=== PATIENT | female | born 1975 | race Caucasian/White ===

== ENCOUNTER 2018-12-09 15:17 | Inpatient (IN) | payer MEDICARE, MEDICAID ==
[~2018-12-09] VITALS: Ht 149.9 cm; Wt 103.1 kg
[2018-12-09 16:39] LABS: HEMATOCRIT 40.5 % (36.0-47.0); HEMOGLOBIN 14.2 g/dl (12.0-15.5); MEAN CORPUSCULAR HEMOGLOBIN 31.1 pg (27.0-33.0); MEAN CORPUSCULAR HGB CONC 35.1 g/dl (32.0-36.5); MEAN CORPUSCULAR VOLUME 88.6 fl (80.0-96.0); PLATELET COUNT, AUTOMATED 253 10^3/uL (150-450); RED BLOOD COUNT 4.57 10^6/uL (4.00-5.40); WHITE BLOOD COUNT 7.6 10^3/uL (4.0-10.0)
[2018-12-09] MEDS ORDERED: FERR325T18 PO (16:44)
[2018-12-09] MEDS ORDERED: BUPR300T34 PO (16:44)
[2018-12-09] MEDS ORDERED: TRAZ-163 PO (16:44)
[2018-12-09] MEDS ORDERED: PRAZ1CAP PO (16:44)
[2018-12-09] MEDS ORDERED: HYDR50TA70 PO (16:44)
[2018-12-09] MEDS ORDERED: DOK1CAP7 PO (16:45)
[2018-12-09] MEDS ORDERED: CARV12.5 PO (16:45)
[2018-12-09] MEDS ORDERED: TOPI100T9 PO (16:45)
[2018-12-09] MEDS ORDERED: OMEP-221 PO (16:45)
[2018-12-09] MEDS ORDERED: ESCI20TA PO (16:45)
[2018-12-09] MEDS ORDERED: LORA-674 PO (16:45)
[2018-12-09] MEDS ORDERED: BACL1TAB8 PO (16:45)
[2018-12-09] MEDS ORDERED: CARB1TAB20 PO (16:45)
[2018-12-09] MEDS ORDERED: OXYB5TAB2 PO (16:45)
[2018-12-09] MEDS ORDERED: LEVO100T5 PO (16:45)
[2018-12-09 17:04] LABS: AMPHETAMINES LEVEL URINE NEGATIVE (NEGATIVE); BARBITURATES URINE NEGATIVE (NEGATIVE); BENZODIAZEPINES URINE NEGATIVE (NEGATIVE); CANNABINOIDS URINE NEGATIVE (NEGATIVE); COCAINE METABOLITE URINE NEGATIVE (NEGATIVE); METHADONE URINE NEGATIVE (NEGATIVE); OPIATES URINE NEGATIVE (NEGATIVE); PHENCYCLIDINE URINE NEGATIVE (NEGATIVE)
[2018-12-09 17:07] LABS: HCG, SERUM QUALITATIVE NEGATIVE (NEGATIVE)
[2018-12-09 17:15] LABS: ACETAMINOPHEN LEVEL < 2.0 UG/ML (10.0-30.0); ALBUMIN 3.8 GM/DL (3.2-5.2); ALT/SGPT 18 U/L (12-78); BILIRUBIN,DIRECT 0.1 MG/DL (0.0-0.2); BILIRUBIN,TOTAL 0.4 MG/DL (0.2-1.0); BLOOD UREA NITROGEN 11 MG/DL (7-18); CALCIUM LEVEL 8.8 MG/DL (8.5-10.1); CARBON DIOXIDE LEVEL 23 MEQ/L (21-32); CHLORIDE LEVEL 106 MEQ/L (98-107); CREATININE FOR GFR 0.84 MG/DL (0.55-1.30); ETHYL ALCOHOL (ETHANOL) < 0.003 % (0.000-0.010); GLOMERULAR FILTRATION RATE > 60.0 (>58); GLUCOSE, FASTING 89 MG/DL (70-100); SALICYLATE LEVEL < 1.7 MG/DL (5.0-30.0); SODIUM LEVEL 136 MEQ/L (136-145); THYROID STIMULATING HORMONE 0.635 uIU/ML (0.358-3.740); TOTAL PROTEIN 7.2 GM/DL (6.4-8.2)
[2018-12-09] MEDS ORDERED: MAALOX 30 ML SUSP *UDC PO PRN (18:30)
[2018-12-09] MEDS ORDERED: MOM 30ML SUSPENSION UDC PO PRN (18:30)
[2018-12-09] MEDS ORDERED: PRAZ2CAP PO (18:51)
[2018-12-09] MEDS ORDERED: MOBI4TAB PO (18:51)
[2018-12-10 00:10] VITALS: BP 132/71
[2018-12-10 06:54] VITALS: BP 148/89
[2018-12-10] MEDS ORDERED: OMEPRAZOLE 20 MG CAP PO SCH (09:00)
--- NOTE | 2018-12-10 09:08 | HPEPDOC ---
General Date of Admission Dec 09, 2018 at 18:20 Date of Service: Dec 10, 2018 Attending Physician: NADEEM HOANG DO Chief Complaint The patient is a 43-year-old female admitted with a reason for visit of Unspecified Depression. Source: Patient, RN/MD Exam Limitations: No limitations Timing/Duration: Unsure Severity: Moderate Associated Symptoms: Malaise, Other (insomnia) History of Present Illness Consultation Medical as Patient referred by Inpatient Mental Health Unit: Physical Examination 43 year old female seen in examination room today on Inpatient Mental Health Unit for her physical examination by Medicine Hospitalist for medical clearance. Today she presents with complaints of her scalp itching, irritation,insomnia only getting approximately 2 2 1/2 hours of sleep each night, and constipation. She has significant medical history of polycystic ovary disease, GERD, Hypothyroidism, Seasonal Allergic Rhinitis, Iron deficiency Anemia,O Overactive bladder with Stress Incontinence and Hypothyroidism. She is admitted to Inpatient Mental Health Unit self referral for having Depression/Suicidal Ideations for several weeks. Home Medications Scheduled Baclofen (Baclofen) 10 Mg Tablet, 10 MG PO BID, (Reported) Bupropion HCl (Bupropion Xl) 300 Mg Tab.er.24h, 300 MG PO DAILY, (Reported) Carbamazepine (Carbamazepine) 200 Mg Tablet, 100 MG PO BID, (Reported) Carvedilol (Carvedilol) 12.5 Mg Tablet, 12.5 MG PO BID, (Reported) TAKES AT 0800 AND 1700 Docusate Sodium (Dok) 100 Mg Capsule, 100 MG PO BID, (Reported) Escitalopram Oxalate (Escitalopram Oxalate) 20 Mg Tablet, 20 MG PO DAILY, (Reported) Ferrous Sulfate (Ferrous Sulfate) 325 Mg Tablet, 325 MG PO BID, (Reported) TAKES AT 0800 & 1700 Levothyroxine Sodium (Levothyroxine Sodium) 100 Mcg Tablet, 100 MCG PO DAILY, (Reported) Loratadine (Loratadine) 10 Mg Tablet, 10 MG PO DAILY, (Reported) Meloxicam (Mobic) 7.5 Mg Tablet, 7.5 MG PO BID, (Reported) TAKES AT 0800 & 1700 - HAS NOT BEEN TAKING DUE TO NO REFILLS AND WAITING FOR APPOINTMENT IN DECEMBER Omeprazole (Omeprazole) 40 Mg Capsule.dr, 40 MG PO DAILY, (Reported) Oxybutynin Chloride (Oxybutynin Chloride ER) 5 Mg Tab.er.24, 5 MG PO DAILY, (Reported) Prazosin Hcl (Prazosin HCl) 1 Mg Capsule, 1 MG PO QHS, (Reported) 3MG TOTAL Prazosin Hcl (Prazosin HCl) 2 Mg Capsule, 2 MG PO QHS, (Reported) 3MG TOTAL Topiramate (Topiramate) 100 Mg Tablet, 100 MG PO BID, (Reported) Trazodone HCl (Trazodone HCl) 100 Mg Tablet, 200 MG PO QHS, (Reported) Scheduled PRN Hydroxyzine HCl (Hydroxyzine HCl) 50 Mg Tablet, 50 MG PO BID PRN for ANXIETY, (Reported) Allergies Coded Allergies: Penicillins (Verified Allergy, Intermediate, rash, 12/09/18) metformin (Verified Allergy, Intermediate, Diarrhea, 12/10/18) Diarrhea Past Medical History Medical History See HPI Surgical History Bilateral carpal tunnel surgery, bilateral knee surgery, cholecystectomy, ankle surgery, right 5th toe surgery Social History * Smoker: Denies Alcohol: Denies Drugs: prescription drugs Recent Travel/Sick Contacts: Denies: Recent travel, Recent sick contacts Psychosocial History: Anxiety, Con SI and HI, Depression, Emotional problems, Prior suicide attempt A-FIB/CHADSVASC A-FIB History Current/History of A-Fib/PAF?: No Review of Systems Constitutional: Reports: Fatigue Eyes: Denies: Pain, Vision change, Conjunctivae inflammation, Eyelid inflammation, Redness, Other ENT: Reports: Head Aches Skin: Denies: Rash, Lesions, Jaundice, Bruising, Itching, Dry, Breakdown, Nail Changes, Other Pulmonary: Denies: Dyspnea, Cough, Pleuritic Chest Pain, Other Symptoms Cardiovascular: Denies: Chest Pain, Palpitations, Orthopnea, Paroxysmal Noc. Dyspnea, Edema, Lt Headedness, Other Symptoms Gastrointestinal: Reports: Abdominal Pain, Constipation, Other Symptoms (indigestion); Denies: Nausea, Vomiting, Diarrhea, Melena, Hematochezia Genitourinary: Denies: Dysuria, Frequency, Incontinence, Hematuria, Retention, Other Symptoms Hematologic: Denies: Bruising, Bleeding Excessively, Petecchia, Purpura, Enlarged Lymph Nodes, Other Hematologic Endocrine: Denies: Polydipsia, Polyphagia, Polyuria, Heat Intolerance, Cold Intolerance, Other Endocrine Sx Musculoskeletal: Denies: Neck Pain, Back Pain, Shoulder Pain, Arm Pain, Hand Pain, Leg Pain, Foot Pain, Joint Pain, Muscle Pain, Spasms, Other Symptoms Neurological: Reports: Weakness; Denies: Numbness, Incoordination, Change in speech, Confusion, Seizures, Other Symptoms Psych: Reports: Other Psych (insomnia) Physical Examination General Exam: Positive: Alert, Cooperative, Mild Distress Eye Exam: Positive: PERRLA, Conjunctiva & lids normal, Sclera icteric ENT Exam: Positive: Atraumatic, Mucous membr. moist/pink, Pharynx Normal, Tongue Midline, Nares Patent Neck Exam: Positive: Supple, +2 carotid pulse wo bruit Chest Exam: Positive: Clear to auscultation, Normal air movement Heart Exam: Positive: Rate Normal, Regular Rhythm, Normal S1, Normal S2 Abdomen Exam: Positive: Normal bowel sounds, Soft, Tenderness (LLQ) Extremity Exam: Positive: Normal pulses Skin Exam: Positive: Nl turgor and temperature Neuro Exam: Positive: Normal Gait, Strength at 5/5 X4 ext, Cranial Nerves 3-12 NL Psych Exam: Positive: Anxiety, Oriented x 3, Other (flat affect, labile ) Vital Signs Vital Signs Date Time Temp Pulse Resp B/P (MAP) Pulse Ox O2 Delivery O2 Flow Rate FiO2 12/10/18 06:54 99.6 62 14 148/89 (108) 12/10/18 00:10 97 Room Air Laboratory Data Labs 24H Laboratory Tests 2 12/09/18 16:06: Nucleated Red Blood Cells % (auto) 0.0, Anion Gap 7L, Glomerular Filtration Rate > 60.0, Calcium Level 8.8, Total Bilirubin 0.4, Direct Bilirubin 0.1, Aspartate Amino Transf (AST/SGOT) 15, Alanine Aminotransferase (ALT/SGPT) 18, Alkaline Phosphatase 106, Total Protein 7.2, Albumin 3.8, Albumin/Globulin Ratio 1.12, Thyroid Stimulating Hormone (TSH) 0.635, Human Chorionic Gonadotropin, Qual NEGATIVE, Salicylates Level < 1.7L, Urine Opiates Screen NEGATIVE, Urine Methadone Screen NEGATIVE, Acetaminophen Level < 2.0L, Urine Barbiturates Screen NEGATIVE, Urine Phencyclidine Screen NEGATIVE, Urine Amphetamines Screen NEGATIVE, Urine Benzodiazepines Screen NEGATIVE, Urine Cocaine Metabolite Screen NEGATIVE, Urine Cannabinoids Screen NEGATIVE, Ethyl Alcohol Level < 0.003 CBC/BMP Laboratory Tests 12/09/18 16:06 Problems (1) Depression with suicidal ideation Status: Acute Response to Treatment: Progressing Discussed With: Patient Problem Specific Plan: Repeat Labs Problem Text: 43 year old female seen in examination room today on Inpatient Mental Health Unit for her physical examination by Medicine [facility] for medical clearance. Today she presents with complaints of her scalp itching, irritation,insomnia only getting approximately 2 2 1/2 hours of sleep each night, and constipation. Depression with Suicidal Ideation-acute continue following Inpatient Mental Health Unit program Pediculosis-acute Plan Permethrin 1% shampoo Hydroxyzine 25-50 mg po tid as needed for itching Essential Hypertension-Chronic Check CMP, CBC w differential, UA Continue taking Carvedilol 12.5 mg po bid Hypothyroidism-Chronic TSH- Continue levothyroxine 100mcg daily on empty stomach Constipation-Chronic Continue Docusate Sodium 100mg bid add Senokot-S 1 po bid, Bisacodyl 10 mg bid Overactive Bladder/Stress Incontinence Continue Prazosin 3 mg tab po QHS GERD-Chronic Continue taking Omeprazole DR 40 mg q daily Iron deficiency anemia-Chronic continue taking Ferrous Sulfate 325 mg Po bid with folic acid and orange juice to decrease GI upset and constipation but increase absorption Seasonal Allergies-Chronic Continue taking Loratadine 10 mg po daily Prognosis: Good DVT Prophylaxis: None, Low Risk patient is ambulatory Discharge: Pending-Mental Health Inpatient Plan / VTE VTE Prophylaxis Ordered?: No VTE Exclusion Mechanical Proph: Low Risk for VTE VTE Exclusion Pharmacological: At Low Risk for VTE Plan Diet: Continue Current Activity: Continue Current CLEO MURPHY Dec 10, 2018 09:08
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
[2018-12-10] MEDS ORDERED: OMEPRAZOLE 20 MG CAP PO ONE (09:45)
[2018-12-10] MEDS: LORATADINE 10 MG TAB PO SCH (09:56)
[2018-12-10] MEDS: MELOXICAM (MOBIC) 7.5 MG TAB PO SCH ×2 (09:56→22:33)
[2018-12-10] MEDS: DOCUSATE SODIUM 100 MG CAP PO SCH ×2 (09:56→22:33)
[2018-12-10] MEDS: FERROUS SULFATE 325MG TAB PO SCH ×2 (09:56→22:33)
[2018-12-10] MEDS: LEVOTHYROXINE 100MCG TABLET (0.1MG) PO SCH (09:58)
[2018-12-10] MEDS: TOPIRAMATE (TopAMAX) 100 MG TAB PO SCH ×2 (09:58→22:30)
[2018-12-10] MEDS: buPROPion **XL** TABLET 150MG (WELLBUTRIN XL) PO SCH (10:28)
[2018-12-10] MEDS: CARVedilol 12.5 MG TAB PO SCH ×2 (10:29→22:55)
[2018-12-10] MEDS: carBAMazepine 200 MG TAB PO SCH ×2 (10:30→22:32)
[2018-12-10] MEDS ORDERED: NIX CREME RINSE 1% 60 ML KIT TOP ONE (11:00)
[2018-12-10] MEDS: BACLOFEN 10 MG TAB PO SCH ×2 (11:27→22:33)
[2018-12-10] MEDS: oxyBUTYnin *DITROPAN XL* 5 MG TABCR PO SCH (11:28)
[2018-12-10] MEDS: hydrOXYzine 25 MG TAB PO PRN (19:01)
[2018-12-10 20:06] VITALS: BP 129/82
[2018-12-10] MEDS ORDERED: PRAZOSIN 1 MG CAP PO SCH (21:00)
[2018-12-10] MEDS: traZODone 50 MG TAB PO PRN (22:30)
[2018-12-10] MEDS: PRAZOSIN 1 MG CAP PO SCH (22:56)
[2018-12-11] MEDS: hydrOXYzine 25 MG TAB PO PRN ×3 (00:16→22:09)
[2018-12-11] MEDS: LEVOTHYROXINE 100MCG TABLET (0.1MG) PO SCH (05:59)
[2018-12-11 07:32] VITALS: BP 133/65
[2018-12-11] MEDS: BACLOFEN 10 MG TAB PO SCH ×2 (08:51→20:34)
[2018-12-11] MEDS: ARIPiprazole 2 MG TAB PO SCH (08:51)
[2018-12-11] MEDS: TOPIRAMATE (TopAMAX) 100 MG TAB PO SCH ×2 (08:51→20:34)
[2018-12-11] MEDS: MELOXICAM (MOBIC) 7.5 MG TAB PO SCH ×2 (08:51→17:53)
[2018-12-11] MEDS: carBAMazepine 200 MG TAB PO SCH ×2 (08:51→20:35)
[2018-12-11] MEDS: DOCUSATE SODIUM 100 MG CAP PO SCH ×2 (08:51→20:35)
[2018-12-11] MEDS: CARVedilol 12.5 MG TAB PO SCH ×2 (08:52→17:53)
[2018-12-11] MEDS: oxyBUTYnin *DITROPAN XL* 5 MG TABCR PO SCH (08:52)
[2018-12-11] MEDS: FERROUS SULFATE 325MG TAB PO SCH ×2 (08:52→17:51)
[2018-12-11] MEDS: buPROPion **XL** TABLET 150MG (WELLBUTRIN XL) PO SCH (08:52)
[2018-12-11] MEDS: OMEPRAZOLE 20 MG CAP PO SCH (08:52)
[2018-12-11] MEDS: LORATADINE 10 MG TAB PO SCH (08:52)
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
[2018-12-11 16:59] VITALS: BP 121/70
[2018-12-11] MEDS: PRAZOSIN 1 MG CAP PO SCH (20:35)
[2018-12-11] MEDS: traZODone 50 MG TAB PO PRN (21:06)
[2018-12-12] MEDS: LEVOTHYROXINE 100MCG TABLET (0.1MG) PO SCH (05:54)
[2018-12-12 06:36] VITALS: BP 134/70
[2018-12-12] MEDS: ARIPiprazole 2 MG TAB PO SCH (08:12)
[2018-12-12] MEDS: buPROPion **XL** TABLET 150MG (WELLBUTRIN XL) PO SCH (08:12)
[2018-12-12] MEDS: DOCUSATE SODIUM 100 MG CAP PO SCH ×2 (08:12→20:31)
[2018-12-12] MEDS: FERROUS SULFATE 325MG TAB PO SCH ×2 (08:12→16:59)
[2018-12-12] MEDS: TOPIRAMATE (TopAMAX) 100 MG TAB PO SCH ×2 (08:12→20:32)
[2018-12-12] MEDS: oxyBUTYnin *DITROPAN XL* 5 MG TABCR PO SCH (08:12)
[2018-12-12] MEDS: BACLOFEN 10 MG TAB PO SCH ×2 (08:13→20:30)
[2018-12-12] MEDS: LORATADINE 10 MG TAB PO SCH (08:13)
[2018-12-12] MEDS: MELOXICAM (MOBIC) 7.5 MG TAB PO SCH ×2 (08:14→16:59)
[2018-12-12] MEDS: OMEPRAZOLE 20 MG CAP PO SCH (08:14)
[2018-12-12] MEDS: CARVedilol 12.5 MG TAB PO SCH ×2 (08:14→16:59)
[2018-12-12] MEDS: carBAMazepine 200 MG TAB PO SCH ×2 (08:15→20:30)
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
[2018-12-12] MEDS: hydrOXYzine 25 MG TAB PO PRN (14:44)
[2018-12-12 18:00] VITALS: BP 125/72
[2018-12-12] MEDS: PRAZOSIN 1 MG CAP PO SCH (20:32)
[2018-12-12] MEDS: traZODone 50 MG TAB PO PRN (22:40)
[2018-12-13] MEDS: LEVOTHYROXINE 100MCG TABLET (0.1MG) PO SCH (06:06)
[2018-12-13 06:14] VITALS: BP 136/81
[2018-12-13] MEDS: carBAMazepine 200 MG TAB PO SCH ×2 (08:47→20:16)
[2018-12-13] MEDS: oxyBUTYnin *DITROPAN XL* 5 MG TABCR PO SCH (08:47)
[2018-12-13] MEDS: FERROUS SULFATE 325MG TAB PO SCH ×2 (08:47→16:21)
[2018-12-13] MEDS: ACETAMINOPHEN TAB 650MG DOSE (2X325MG) PO PRN (08:47)
[2018-12-13] MEDS: TOPIRAMATE (TopAMAX) 100 MG TAB PO SCH ×2 (08:47→20:16)
[2018-12-13] MEDS: DOCUSATE SODIUM 100 MG CAP PO SCH ×2 (08:47→20:15)
[2018-12-13] MEDS: MELOXICAM (MOBIC) 7.5 MG TAB PO SCH ×2 (08:47→16:21)
[2018-12-13] MEDS: buPROPion **XL** TABLET 150MG (WELLBUTRIN XL) PO SCH (08:47)
[2018-12-13] MEDS: LORATADINE 10 MG TAB PO SCH (08:47)
[2018-12-13] MEDS: BACLOFEN 10 MG TAB PO SCH ×2 (08:48→20:16)
[2018-12-13] MEDS: CARVedilol 12.5 MG TAB PO SCH ×2 (08:48→16:21)
[2018-12-13] MEDS: OMEPRAZOLE 20 MG CAP PO SCH (08:48)
[2018-12-13] MEDS: hydrOXYzine 25 MG TAB PO PRN ×2 (09:33→20:16)
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
[2018-12-13 18:00] VITALS: BP 107/57
[2018-12-13] MEDS: PRAZOSIN 1 MG CAP PO SCH (20:15)
[2018-12-13] MEDS: traZODone 50 MG TAB PO PRN (22:26)
[2018-12-14] MEDS: LEVOTHYROXINE 100MCG TABLET (0.1MG) PO SCH (05:43)
[2018-12-14 06:36] VITALS: BP 145/85
[2018-12-14] MEDS: hydrOXYzine 25 MG TAB PO PRN ×3 (06:38→20:27)
[2018-12-14] MEDS: buPROPion **XL** TABLET 150MG (WELLBUTRIN XL) PO SCH (08:15)
[2018-12-14] MEDS: TOPIRAMATE (TopAMAX) 100 MG TAB PO SCH ×2 (08:15→20:04)
[2018-12-14] MEDS: OMEPRAZOLE 20 MG CAP PO SCH (08:15)
[2018-12-14] MEDS: LORATADINE 10 MG TAB PO SCH (08:16)
[2018-12-14] MEDS: DOCUSATE SODIUM 100 MG CAP PO SCH ×2 (08:16→20:04)
[2018-12-14] MEDS: CARVedilol 12.5 MG TAB PO SCH ×2 (08:16→17:12)
[2018-12-14] MEDS: BACLOFEN 10 MG TAB PO SCH ×2 (08:16→20:04)
[2018-12-14] MEDS: FERROUS SULFATE 325MG TAB PO SCH ×2 (08:16→17:12)
[2018-12-14] MEDS: carBAMazepine 200 MG TAB PO SCH ×2 (08:16→20:05)
[2018-12-14] MEDS: oxyBUTYnin *DITROPAN XL* 5 MG TABCR PO SCH (08:17)
[2018-12-14] MEDS: MELOXICAM (MOBIC) 7.5 MG TAB PO SCH ×2 (08:17→17:12)
[2018-12-14 16:06] VITALS: BP 132/78
[2018-12-14] MEDS: PRAZOSIN 1 MG CAP PO SCH (20:06)
[2018-12-14] MEDS: traZODone 50 MG TAB PO PRN (23:10)
[2018-12-15] MEDS: LEVOTHYROXINE 100MCG TABLET (0.1MG) PO SCH (05:47)
[2018-12-15 06:20] VITALS: BP 143/76
[2018-12-15] MEDS: hydrOXYzine 25 MG TAB PO PRN ×3 (07:34→23:58)
[2018-12-15] MEDS: oxyBUTYnin *DITROPAN XL* 5 MG TABCR PO SCH (08:48)
[2018-12-15] MEDS: CARVedilol 12.5 MG TAB PO SCH ×2 (08:48→17:05)
[2018-12-15] MEDS: MELOXICAM (MOBIC) 7.5 MG TAB PO SCH ×2 (08:49→17:05)
[2018-12-15] MEDS: DOCUSATE SODIUM 100 MG CAP PO SCH ×2 (08:49→20:42)
[2018-12-15] MEDS: LORATADINE 10 MG TAB PO SCH (08:49)
[2018-12-15] MEDS: BACLOFEN 10 MG TAB PO SCH ×2 (08:49→20:43)
[2018-12-15] MEDS: FERROUS SULFATE 325MG TAB PO SCH ×2 (08:49→17:05)
[2018-12-15] MEDS: carBAMazepine 200 MG TAB PO SCH ×2 (08:49→20:43)
[2018-12-15] MEDS: TOPIRAMATE (TopAMAX) 100 MG TAB PO SCH ×2 (08:49→20:43)
[2018-12-15] MEDS: OMEPRAZOLE 20 MG CAP PO SCH (08:49)
[2018-12-15] MEDS: buPROPion **XL** TABLET 150MG (WELLBUTRIN XL) PO SCH (08:49)
[2018-12-15 16:16] VITALS: BP 132/59
[2018-12-15] MEDS: PRAZOSIN 1 MG CAP PO SCH (20:42)
[2018-12-15] MEDS: traZODone 50 MG TAB PO PRN (20:42)
[2018-12-16] MEDS: LEVOTHYROXINE 100MCG TABLET (0.1MG) PO SCH (06:49)
[2018-12-16 06:50] VITALS: BP 162/86
[2018-12-16] MEDS: buPROPion **XL** TABLET 150MG (WELLBUTRIN XL) PO SCH (08:58)
[2018-12-16] MEDS: LORATADINE 10 MG TAB PO SCH (08:58)
[2018-12-16] MEDS: FERROUS SULFATE 325MG TAB PO SCH ×2 (08:58→17:03)
[2018-12-16] MEDS: BACLOFEN 10 MG TAB PO SCH ×2 (08:58→20:23)
[2018-12-16] MEDS: TOPIRAMATE (TopAMAX) 100 MG TAB PO SCH ×2 (08:58→20:23)
[2018-12-16] MEDS: MELOXICAM (MOBIC) 7.5 MG TAB PO SCH ×2 (08:58→17:02)
[2018-12-16] MEDS: OMEPRAZOLE 20 MG CAP PO SCH (08:59)
[2018-12-16] MEDS: CARVedilol 12.5 MG TAB PO SCH ×2 (08:59→17:03)
[2018-12-16] MEDS: DOCUSATE SODIUM 100 MG CAP PO SCH ×2 (08:59→20:22)
[2018-12-16] MEDS: oxyBUTYnin *DITROPAN XL* 5 MG TABCR PO SCH (09:00)
[2018-12-16] MEDS: carBAMazepine 200 MG TAB PO SCH ×2 (09:02→20:22)
[2018-12-16] MEDS: hydrOXYzine 25 MG TAB PO PRN ×2 (12:13→23:51)
[2018-12-16 16:00] VITALS: BP 108/70
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
[2018-12-16] MEDS: PRAZOSIN 1 MG CAP PO SCH (20:23)
[2018-12-16] MEDS: traZODone 50 MG TAB PO PRN (22:38)
[2018-12-17] MEDS: LEVOTHYROXINE 100MCG TABLET (0.1MG) PO SCH (06:06)
[2018-12-17 06:27] VITALS: BP 142/87
[2018-12-17] MEDS: OMEPRAZOLE 20 MG CAP PO SCH (08:52)
[2018-12-17] MEDS: FERROUS SULFATE 325MG TAB PO SCH ×2 (08:52→17:13)
[2018-12-17] MEDS: TOPIRAMATE (TopAMAX) 100 MG TAB PO SCH ×2 (08:52→20:17)
[2018-12-17] MEDS: DOCUSATE SODIUM 100 MG CAP PO SCH ×2 (08:52→20:17)
[2018-12-17] MEDS: BACLOFEN 10 MG TAB PO SCH ×2 (08:52→20:18)
[2018-12-17] MEDS: carBAMazepine 200 MG TAB PO SCH ×2 (08:52→20:18)
[2018-12-17] MEDS: oxyBUTYnin *DITROPAN XL* 5 MG TABCR PO SCH (08:52)
[2018-12-17] MEDS: buPROPion **XL** TABLET 150MG (WELLBUTRIN XL) PO SCH (08:52)
[2018-12-17] MEDS: LORATADINE 10 MG TAB PO SCH (08:52)
[2018-12-17] MEDS: MELOXICAM (MOBIC) 7.5 MG TAB PO SCH ×2 (08:52→17:13)
[2018-12-17] MEDS: CARVedilol 12.5 MG TAB PO SCH ×2 (08:53→17:13)
--- NOTE | 2018-12-17 11:27 | MHIPNPDOC ---
[facility] Progress Note Progress Note Ambar Arriola Inpatient Progress Note Ambar Arriola Select Gender MRN: N/A Date of : MM/DD/YYYY Date of Service: 12/17/2018 History of Present Illness The patient is a 43-year-old woman presented to [facility] reporting significant depression with suicidal thoughts to overdose or to cut her own throat. She reports that she has become increasingly depressed and hopeless and that her energy and interest in things has waned. 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 She reports that as she approaches the that memories have resurged as they normally have; however, in the setting of multiple psychosocial stressors, she has developed depression in addition to her perennial relapses of chronic PTSD. She reports that her medications have been helpful but have not been able to control her symptoms well enough to prevent her from becoming severely depressed. When the patient is met with, she describes that she is still significantly depressed and still wonders whether she would end her life. She reports that she has protective factors that make her refuse to end her life; however, she still has a plan to overdose at this time. Interval History The patient was met with today. She reports she is making some improvement and that her suicidality is "much lower." She has been enjoying her stay on the inpatient unit. Notably, she states she feels much more social here. Has been fairly euthymic. She does attempt to show anxiety and depression when around certain providers; however, when observed with other patients, she is quite amenable, jovial, and enjoys her experience. She reports no problems from the Abilify and states that her depression is improving. However, she attempts to make the argument for staying longer. Discussed with patient that long-term may be needed if her suicidality truly hasn't resolved, which causes the patient to suddenly change her story, as she does not wish to go to long-term treatment. It appears that she has become adapted to the environment here, becoming more comfortable and wishes to stay longer due to the socialization. It appears from observations that her depression has been in remission. Review Of Systems General: Denies any fever or appetite changes Cardiovascular: Denies Chest pain or palpations GI: Denies Nausea, vomiting, or bowel changes Respiratory: Denies shortness of breath or cough Neuro: Denies dizziness, tremors Derm: Denies any rashes or pruritus MSK: Denies any muscle tightness or stiffness HEENT: Denies any vision changes or headaches Heme/Lymph: denies any bruising or bleeding Endo: denies any cold/heat intolerance or water intake changes Psychotherapy None on this visit. Vital Signs Reviewed. Mental Status Examination General: Fair hygiene. Speech: Spontaneous and fluid Thought processes: Linear and logical MSK: Smooth and coordinated gait, no signs of tremors or involuntary orofacial movements Thought content: Future orientated. Abstract reasoning, and computation: Intact Description of associations: Intact Description of abnormal or psychotic thoughts: She denies suicidal ideation, denies homicidal ideation, denies auditory or visual hallucinations. Judgment: fair Insight: fair Orientation: Alert and orientated 3 Cognition: Grossly normal Recent and remote memory: Intact Attention span and concentration: Intact Fund of knowledge: Adequate Mood: "Fine." Affect: Euthymic with a full range. Diagnoses MDD recurrent, severe in full remission. PTSD, chronic. Assessment and Plan MDD/PTSD: Increase Abilify to 7.5 mg daily with other home medications. Disposition Discharge on after observation. Time Spent 15 minutes [id number] Vital Signs Vital Signs Date Time Temp Pulse Resp B/P (MAP) Pulse Ox O2 Delivery O2 Flow Rate FiO2 12/17/18 08:53 80 126/82 12/17/18 06:27 96.9 14 Room Air Current Medications Current Medications Medications (Trade) Dose Ordered Sig/Tucker Route PRN Reason Start Time Stop Time Status Last Admin Dose Admin Acetaminophen (Tylenol Tab) 650 mg Q6HP PRN PO HEADACHE or DISCOMFORT 12/09/18 18:30 12/13/18 08:47 Al Hydrox/Mg Hydrox/Simethicone (Mylanta) 30 ml Q4HP PRN PO HEARTBURN/INDIGESTION 12/09/18 18:30 12/11/18 11:23 Aripiprazole (AbiLIFY) 2 mg DAILY PO 12/11/18 09:00 12/13/18 08:28 DC 12/12/18 08:12 Aripiprazole (AbiLIFY) 5 mg DAILY PO 12/13/18 09:00 12/17/18 08:52 Baclofen (Lioresal) 10 mg BID PO 12/10/18 09:00 12/17/18 08:52 Bupropion HCl (Wellbutrin Xl) 300 mg DAILY PO 12/10/18 09:00 12/17/18 08:52 Carbamazepine (TEGretol) 100 mg BID PO 12/10/18 09:00 12/17/18 08:52 Carvedilol (COReg) 12.5 mg BID PO 12/10/18 09:00 12/11/18 14:01 DC 12/11/18 08:52 Carvedilol (COReg) 12.5 mg BID@0900,1700 PO 12/11/18 14:01 12/17/18 08:53 Docusate Sodium (Colace) 100 mg BID PO 12/10/18 09:00 12/17/18 08:52 Ferrous Sulfate (Ferrous Sulfate) 325 mg BID PO 12/10/18 09:00 12/11/18 14:02 DC 12/11/18 08:52 Ferrous Sulfate (Ferrous Sulfate) 325 mg BID@0900,1700 PO 12/11/18 14:02 12/17/18 08:52 Home Med (Med Rec Complete!) ASDIRECTED XX 12/09/18 19:00 12/09/18 18:53 DC Hydroxyzine HCl (Atarax) 25 mg Q4HP PRN PO ANXIETY/AGITATION 12/09/18 18:30 12/11/18 11:13 DC 12/11/18 06:03 Hydroxyzine HCl (Atarax) 50 mg Q4HP PRN PO ANXIETY/AGITATION 12/11/18 11:00 12/16/18 23:51 Levothyroxine Sodium (Synthroid) 100 mcg DAILY@0600 PO 12/10/18 06:00 12/17/18 06:06 Loratadine (Claritin) 10 mg DAILY PO 12/10/18 09:00 12/17/18 08:52 Magnesium Hydroxide (Milk Of Magnesia) 30 ml DAILYPRN PRN PO CONSTIPATION 12/09/18 18:30 Meloxicam (Mobic) 7.5 mg BID PO 12/10/18 09:00 12/11/18 14:02 DC 12/11/18 08:51 Meloxicam (Mobic) 7.5 mg BID@0900,1700 PO 12/11/18 14:02 12/17/18 08:52 Omeprazole (PriLOSEC) 40 mg DAILY PO 12/10/18 09:00 12/10/18 09:47 DC Omeprazole (PriLOSEC) 40 mg DAILY PO 12/11/18 09:00 12/17/18 08:52 Oxybutynin Chloride (Ditropan Xl) 5 mg DAILY PO 12/10/18 09:00 12/17/18 08:52 Prazosin HCl (Minipress) 2 mg QHS PO 12/10/18 21:00 UNV Prazosin HCl (Minipress) 3 mg QHS PO 12/10/18 21:00 12/16/18 20:23 Topiramate (TopAMAX) 100 mg BID PO 12/10/18 09:00 12/17/18 08:52 Trazodone HCl (Desyrel) 50 mg QHSP PRN PO INSOMNIA 12/09/18 21:00 12/16/18 22:38 Allergies Coded Allergies: Penicillins (Verified Allergy, Intermediate, rash, 12/09/18) metformin (Verified Allergy, Intermediate, Diarrhea, 12/10/18) Diarrhea MELL AZAR DO Dec 17, 2018 11:27
[2018-12-17 16:07] VITALS: BP 133/65
[2018-12-17] MEDS: PRAZOSIN 1 MG CAP PO SCH (20:18)
[2018-12-17] MEDS: traZODone 100 MG TAB PO PRN (22:27)
[2018-12-18] MEDS: LEVOTHYROXINE 100MCG TABLET (0.1MG) PO SCH (06:25)
[2018-12-18 06:29] VITALS: BP 121/66
[2018-12-18] MEDS: TOPIRAMATE (TopAMAX) 100 MG TAB PO SCH ×2 (08:10→20:08)
[2018-12-18] MEDS: carBAMazepine 200 MG TAB PO SCH ×2 (08:10→20:08)
[2018-12-18] MEDS: CARVedilol 12.5 MG TAB PO SCH ×2 (08:10→17:12)
[2018-12-18] MEDS: LORATADINE 10 MG TAB PO SCH (08:10)
[2018-12-18] MEDS: MELOXICAM (MOBIC) 7.5 MG TAB PO SCH ×2 (08:10→17:12)
[2018-12-18] MEDS: ARIPiprazole 15 MG TAB (AbiLIFY) PO SCH (08:10)
[2018-12-18] MEDS: BACLOFEN 10 MG TAB PO SCH ×2 (08:10→20:08)
[2018-12-18] MEDS: oxyBUTYnin *DITROPAN XL* 5 MG TABCR PO SCH (08:10)
[2018-12-18] MEDS: FERROUS SULFATE 325MG TAB PO SCH ×2 (08:10→17:12)
[2018-12-18] MEDS: DOCUSATE SODIUM 100 MG CAP PO SCH ×2 (08:10→20:08)
[2018-12-18] MEDS: buPROPion **XL** TABLET 150MG (WELLBUTRIN XL) PO SCH (08:10)
[2018-12-18] MEDS: OMEPRAZOLE 20 MG CAP PO SCH (08:11)
[2018-12-18] MEDS ORDERED: ABIL1TAB12 PO (10:47)
--- NOTE | 2018-12-18 11:53 | MHIPNPDOC ---
[facility] Progress Note Progress Note Inpatient Progress Note Ambar Arriola MRN: N/A Date of : N/A Date of Service: 12/18/2018 History of Present Illness The patient is a 43-year-old woman presented to [facility] reporting significant depression with suicidal thoughts to overdose or to cut her own throat. She reports that she has become increasingly depressed and hopeless and that her energy and interest in things has waned. 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 She reports that as she approaches the that memories have resurged as they normally have; however, in the setting of multiple psychosocial stressors, she has developed depression in addition to her perennial relapses of chronic PTSD. She reports that her medications have been helpful but have not been able to control her symptoms well enough to prevent her from becoming severely depressed. When the patient is met with, she describes that she is still significantly depressed and still wonders whether she would end her life. She reports that she has protective factors that make her refuse to end her life; however, she still has a plan to overdose at this time. Interval History The patient has met with today. She reports that she has been improving well and that she has been feeling more prepared for tomorrow's discharge. She reports that her depression, anxiety, low mood and hopelessness have all resolved. She reports she is attending groups, feeling socializations very therapeutic for her. She reports no problems with her Abilify. No issues with nursing staff. Reported the patient is generally euthymic, engaged, and friendly. She has reported that her suicidality has resolved and is merely some hopelessness with no overt suicidality present. Review Of Systems General: Denies any fever or appetite changes Cardiovascular: Denies Chest pain or palpations GI: Denies Nausea, vomiting, or bowel changes Respiratory: Denies shortness of breath or cough Neuro: Denies dizziness, tremors Derm: Denies any rashes or pruritus MSK: Denies any muscle tightness or stiffness HEENT: Denies any vision changes or headaches Heme/Lymph: denies any bruising or bleeding Endo: denies any cold/heat intolerance or water intake changes Psychotherapy None on this visit. Vital Signs Reviewed. Mental Status Examination General: Fair hygiene. Speech: Spontaneous and fluid Thought processes: Linear and logical MSK: Smooth and coordinated gait, no signs of tremors or involuntary orofacial movements Thought content: Future orientated. Abstract reasoning, and computation: Intact Description of associations: Intact Description of abnormal or psychotic thoughts: She denies suicidal ideation, denies homicidal ideation, denies auditory or visual hallucinations. Judgment: fair Insight: fair Orientation: Alert and orientated 3 Cognition: Grossly normal Recent and remote memory: Intact Attention span and concentration: Intact Fund of knowledge: Adequate Mood: "Fine." Affect: Euthymic with a full range. Diagnoses MDD recurrent, severe in full remission. PTSD, chronic. Assessment and Plan MDD/PTSD: Increase Abilify to 7.5 mg daily with other home medications. Disposition Discharge tomorrow. Time Spent 15 minutes [id number]. Sunday Vital Signs Vital Signs Date Time Temp Pulse Resp B/P (MAP) Pulse Ox O2 Delivery O2 Flow Rate FiO2 12/18/18 08:10 70 138/88 12/18/18 08:03 Room Air 12/18/18 06:29 97.2 18 Current Medications Current Medications Medications (Trade) Dose Ordered Sig/Tucker Route PRN Reason Start Time Stop Time Status Last Admin Dose Admin Acetaminophen (Tylenol Tab) 650 mg Q6HP PRN PO HEADACHE or DISCOMFORT 12/09/18 18:30 12/13/18 08:47 Al Hydrox/Mg Hydrox/Simethicone (Mylanta) 30 ml Q4HP PRN PO HEARTBURN/INDIGESTION 12/09/18 18:30 12/11/18 11:23 Aripiprazole (AbiLIFY) 2 mg DAILY PO 12/11/18 09:00 12/13/18 08:28 DC 12/12/18 08:12 Aripiprazole (AbiLIFY) 5 mg DAILY PO 12/13/18 09:00 12/17/18 12:55 DC 12/17/18 08:52 Aripiprazole (AbiLIFY) 7.5 mg DAILY PO 12/18/18 09:00 12/18/18 08:10 Baclofen (Lioresal) 10 mg BID PO 12/10/18 09:00 12/18/18 08:10 Bupropion HCl (Wellbutrin Xl) 300 mg DAILY PO 12/10/18 09:00 12/18/18 08:10 Carbamazepine (TEGretol) 100 mg BID PO 12/10/18 09:00 12/18/18 08:10 Carvedilol (COReg) 12.5 mg BID PO 12/10/18 09:00 12/11/18 14:01 DC 12/11/18 08:52 Carvedilol (COReg) 12.5 mg BID@0900,1700 PO 12/11/18 14:01 12/18/18 08:10 Docusate Sodium (Colace) 100 mg BID PO 12/10/18 09:00 12/18/18 08:10 Ferrous Sulfate (Ferrous Sulfate) 325 mg BID PO 12/10/18 09:00 12/11/18 14:02 DC 12/11/18 08:52 Ferrous Sulfate (Ferrous Sulfate) 325 mg BID@0900,1700 PO 12/11/18 14:02 12/18/18 08:10 Home Med (Med Rec Complete!) ASDIRECTED XX 12/09/18 19:00 12/09/18 18:53 DC Hydroxyzine HCl (Atarax) 25 mg Q4HP PRN PO ANXIETY/AGITATION 12/09/18 18:30 12/11/18 11:13 DC 12/11/18 06:03 Hydroxyzine HCl (Atarax) 50 mg Q4HP PRN PO ANXIETY/AGITATION 12/11/18 11:00 12/16/18 23:51 Levothyroxine Sodium (Synthroid) 100 mcg DAILY@0600 PO 12/10/18 06:00 12/18/18 06:25 Loratadine (Claritin) 10 mg DAILY PO 12/10/18 09:00 12/18/18 08:10 Magnesium Hydroxide (Milk Of Magnesia) 30 ml DAILYPRN PRN PO CONSTIPATION 12/09/18 18:30 Meloxicam (Mobic) 7.5 mg BID PO 12/10/18 09:00 12/11/18 14:02 DC 12/11/18 08:51 Meloxicam (Mobic) 7.5 mg BID@0900,1700 PO 12/11/18 14:02 12/18/18 08:10 Omeprazole (PriLOSEC) 40 mg DAILY PO 12/10/18 09:00 12/10/18 09:47 DC Omeprazole (PriLOSEC) 40 mg DAILY PO 12/11/18 09:00 12/18/18 08:11 Oxybutynin Chloride (Ditropan Xl) 5 mg DAILY PO 12/10/18 09:00 12/18/18 08:10 Prazosin HCl (Minipress) 2 mg QHS PO 12/10/18 21:00 UNV Prazosin HCl (Minipress) 3 mg QHS PO 12/10/18 21:00 12/17/18 20:18 Topiramate (TopAMAX) 100 mg BID PO 12/10/18 09:00 12/18/18 08:10 Trazodone HCl (Desyrel) 50 mg QHSP PRN PO INSOMNIA 12/09/18 21:00 12/17/18 17:27 DC 12/16/18 22:38 Trazodone HCl (Desyrel) 100 mg QHSP PRN PO INSOMNIA 12/17/18 17:30 12/17/18 22:27 Allergies Coded Allergies: Penicillins (Verified Allergy, Intermediate, rash, 12/09/18) metformin (Verified Allergy, Intermediate, Diarrhea, 12/10/18) Diarrhea MELL AZAR DO Dec 18, 2018 11:53
[2018-12-18 16:50] VITALS: BP 122/75
[2018-12-18 20:08] VITALS: BP 163/99
[2018-12-18] MEDS: PRAZOSIN 1 MG CAP PO SCH (20:08)
[2018-12-18] MEDS: traZODone 100 MG TAB PO PRN (22:35)
[2018-12-19] MEDS: LEVOTHYROXINE 100MCG TABLET (0.1MG) PO SCH (05:16)
[2018-12-19 06:14] VITALS: BP 164/89
[2018-12-19] MEDS: ACETAMINOPHEN TAB 650MG DOSE (2X325MG) PO PRN (06:44)
[2018-12-19] MEDS: oxyBUTYnin *DITROPAN XL* 5 MG TABCR PO SCH (08:21)
[2018-12-19] MEDS: OMEPRAZOLE 20 MG CAP PO SCH (08:23)
[2018-12-19] MEDS: buPROPion **XL** TABLET 150MG (WELLBUTRIN XL) PO SCH (08:23)
[2018-12-19] MEDS: DOCUSATE SODIUM 100 MG CAP PO SCH (08:24)
[2018-12-19] MEDS: BACLOFEN 10 MG TAB PO SCH (08:24)
[2018-12-19] MEDS: MELOXICAM (MOBIC) 7.5 MG TAB PO SCH (08:24)
[2018-12-19] MEDS: TOPIRAMATE (TopAMAX) 100 MG TAB PO SCH (08:24)
[2018-12-19] MEDS: carBAMazepine 200 MG TAB PO SCH (08:26)
[2018-12-19] MEDS: LORATADINE 10 MG TAB PO SCH (08:26)
[2018-12-19] MEDS: FERROUS SULFATE 325MG TAB PO SCH (08:26)
[2018-12-19] MEDS: ARIPiprazole 15 MG TAB (AbiLIFY) PO SCH (08:26)
[2018-12-19] MEDS: CARVedilol 12.5 MG TAB PO SCH (08:28)
--- NOTE | 2018-12-19 11:28 | MHDSPDOC ---
[facility] Discharge Summary Discharge Summary DATE OF ADMISSION: Dec 09, 2018 at 18:20 DATE OF DISCHARGE: 12/19/18 Ambar Arriola Discharge Ambar Arriola Select Gender MRN: N/A Date of : MM/DD/YYYY Date of Service: 12/19/2018 Diagnoses MDD recurrent, severe in full remission. PTSD, chronic. History of Present Illness The patient is a 43-year-old woman presented to [facility] reporting significant depression with suicidal thoughts to overdose or to cut her own throat. She reports that she has become increasingly depressed and hopeless and that her energy and interest in things has waned. 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 She reports that as she approaches the that memories have resurged as they normally have; however, in the setting of multiple psychosocial stressors, she has developed depression in addition to her perennial relapses of chronic PTSD. She reports that her medications have been helpful but have not been able to control her symptoms well enough to prevent her from becoming severely depressed. When the patient is met with, she describes that she is still significantly depressed and still wonders whether she would end her life. She reports that she has protective factors that make her refuse to end her life; however, she still has a plan to overdose at this time. Consultants Involved Hospitalist/PCP screening Treatment and Progress On The Unit The patient was admitted to the inpatient unit where she was subsequently started on her home medications and augmented with Abilify 2 mg increased up to a total of 7.5 mg with positive effects on her depression. Her depression quickly resolved after she had arrived on the unit and was able to engage in groups and was attending to her needs well. She did appear to be quite euthymic for the last few days of her admission while still claiming suicidal ideation. She became very anxious whenever discharge was talked about. Nursing staff did note the patient enjoyed the therapeutic socialization and had had difficulties socializing as an outpatient as she had rejected any of her outpatient worker's recommendations to engage in mental health association sponsored activities. Reportedly she had also been planning this particular admission as she wished to come in to have the therapeutic environment. On the day of discharge the patient had requested to go, did not meet involuntary criteria as she had been denying suicidal and homicidal ideation for the last 24 hours prior to discharge, was not significantly impaired by any mental health condition, was able to attend to her needs and her mental status was euthymic. She was able to engage in discharge planning cooperatively and declined further voluntary admission and thus was discharged in good lorena. Discharge Assessment 43-year-old woman with a history of intellectual disabilities who has difficulty socializing as outpatient who presents with depression. She does well in therapeutic environment, however, becomes very uncomfortable quickly subsequently claiming suicidal ideation despite being euthymic and jovial which is concerning for the patient becoming more acclimated to the inpatient environment and malingering. Mental Status Examination General: Well dressed with good hygiene Speech: Spontaneous and fluid Thought processes: Linear and logical MSK: Smooth and coordinated gait, no signs of tremors or involuntary orofacial movements Thought content: Future orientated Abstract reasoning, and computation: Intact Description of associations: Intact Description of abnormal or psychotic thoughts: Denies any suicidal or homicidal ideation. Denies any auditory or visual hallucinations. Does not appear to be responding to internal stimuli. Does not appear to be endorsing any bizarre or paranoid ideation. Judgment: fair Insight: fair Orientation: Alert and orientated 3 Cognition: Grossly normal Recent and remote memory: Intact Attention span and concentration: Intact Fund of knowledge: Adequate Mood: "okay" Affect: Euthymic with a full range Follow Up The social work team worked during the predischarge meeting in order to evaluate for further issues of lethality address them fully before discharge. They worked on safety planning with the patient's family members in order to ensure that the patient will have a safe and effective discharge. Time Spent The amount of time spent in the coordination of care for this patient was approx imately 30 minutes. Vital Signs/I&Os Vital Signs Date Time Temp Pulse Resp B/P (MAP) Pulse Ox O2 Delivery O2 Flow Rate FiO2 12/19/18 06:14 96.9 79 16 164/89 (114) 12/18/18 08:03 Room Air Medications Scheduled Aripiprazole (Abilify) 15 Mg Tablet, 7.5 MG PO DAILY for mood for 28 Days, #14 Baclofen (Baclofen) 10 Mg Tablet, 10 MG PO BID, (Reported) Bupropion HCl (Bupropion Xl) 300 Mg Tab.er.24h, 300 MG PO DAILY for mood for 28 Days, #28 Carbamazepine (Carbamazepine) 200 Mg Tablet, 100 MG PO BID, (Reported) Carvedilol (Carvedilol) 12.5 Mg Tablet, 12.5 MG PO BID, (Reported) TAKES AT 0800 AND 1700 Docusate Sodium (Dok) 100 Mg Capsule, 100 MG PO BID, (Reported) Escitalopram Oxalate (Escitalopram Oxalate) 20 Mg Tablet, 20 MG PO DAILY, (Reported) Ferrous Sulfate (Ferrous Sulfate) 325 Mg Tablet, 325 MG PO BID, (Reported) TAKES AT 0800 & 1700 Levothyroxine Sodium (Levothyroxine Sodium) 100 Mcg Tablet, 100 MCG PO DAILY, (Reported) Loratadine (Loratadine) 10 Mg Tablet, 10 MG PO DAILY, (Reported) Meloxicam (Mobic) 7.5 Mg Tablet, 7.5 MG PO BID, (Reported) TAKES AT 0800 & 1700 - HAS NOT BEEN TAKING DUE TO NO REFILLS AND WAITING FOR APPOINTMENT IN DECEMBER Omeprazole (Omeprazole) 40 Mg Capsule.dr, 40 MG PO DAILY, (Reported) Oxybutynin Chloride (Oxybutynin Chloride ER) 5 Mg Tab.er.24, 5 MG PO DAILY, (Reported) Prazosin Hcl (Prazosin HCl) 1 Mg Capsule, 1 MG PO QHS, (Reported) 3MG TOTAL Prazosin Hcl (Prazosin HCl) 2 Mg Capsule, 2 MG PO QHS, (Reported) 3MG TOTAL Topiramate (Topiramate) 100 Mg Tablet, 100 MG PO BID, (Reported) Trazodone HCl (Trazodone HCl) 100 Mg Tablet, 200 MG PO QHS for sleep for 28 Days, #56 Scheduled PRN Hydroxyzine HCl (Hydroxyzine HCl) 50 Mg Tablet, 50 MG PO BID PRN for ANXIETY, (Reported) Allergies Coded Allergies: Penicillins (Verified Allergy, Intermediate, rash, 12/09/18) metformin (Verified Allergy, Intermediate, Diarrhea, 12/10/18) Diarrhea MELL AZAR DO Dec 19, 2018 11:28
[2018-12-19] MEDS ORDERED: TRAZ-163 PO (11:51)
[2018-12-19] MEDS ORDERED: BUPR300T34 PO (11:51)
[2018-12-19] MEDS ORDERED: ABIL1TAB12 PO (11:51)
== END 2018-12-19 14:00 | disposition home or self-care (01) | DRG 885 ==
LOC: M ED 15:17 → M ED INP 18:20 → M PSY 23:55
PROVIDERS: ADMIT Psychiatry & Neurology Psychiatry; ATTEND Psychiatry & Neurology Addiction Medicine
DX: F33.2 Major depressive disorder, recurrent severe without psychotic features (principal); R45.851 Suicidal ideations; F43.12 Post-traumatic stress disorder, chronic; K21.9 Gastro-esophageal reflux disease without esophagitis; E03.9 Hypothyroidism, unspecified; K59.00 Constipation, unspecified; E28.2 Polycystic ovarian syndrome; J30.2 Other seasonal allergic rhinitis; D50.9 Iron deficiency anemia, unspecified; N32.81 Overactive bladder; N39.3 Stress incontinence (female) (male); Z62.810 Personal history of physical and sexual abuse in childhood; Z81.8 Family history of other mental and behavioral disorders; Z88.0 Allergy status to penicillin; Z79.899 Other long term (current) drug therapy; Z88.8 Allergy status to other drugs, medicaments and biological substances

== ENCOUNTER → 2021-01-04 | Outpatient (CLI) | payer MEDICARE, MEDICAID ==
[~2021-01-04] MED LIST: ABIL1TAB12 PO; ARIP1TAB6 PO; BACL1TAB8 PO; BACL1TAB9 PO; BUPR300T92 PO; CARB1TAB20 PO; CARV12.5 PO; CARV6.25 PO; DOK1CAP4 PO; ESCI20TA16 PO; FERR325T18 PO; FLUTISP INH; FURO20TA2 PO; HYDR50TA70 PO; LEVO100T5 PO; LEVO125T4 PO; LEVOTAB10 PO; LEXA1TAB PO; LORA-674 PO; MIRT-62 PO; MOBI4TAB PO; OMEP-221 PO; OXYB-54 PO; PRAZ1CAP PO; PRAZ2CAP PO; SPIR-10 PO; TOPI100T9 PO; TRAZ-257 PO; VENTAER INH; XARE20TA PO
[2021-01-04 08:05] LABS: ABG BASE EXCESS -3.3 (-2.0-2.0); ABG HCO3 21.8 MEQ/L (22.0-26.0); ABG O2 SATURATION 98.5 % (95.0-99.0); ABG PARTIAL PRESSURE CO2 39.5 mmHg (35.0-45.0); ABG PARTIAL PRESSURE O2 124.1 mmHg (75.0-100.0); ABG STANDARD HCO3 21.7 MEQ/L (22.0-26.0)
--- NOTE | 2021-01-04 08:22 | PFTRPT ---
Site: [facility], [address] [place] [address], [id number] ID: [id number] Name: JOSIE VALERA Visit Date: 01/04/2021 Second ID: [id number] Referring Doctor: Claudia Mariscal MD Reviewing Doctor: Jonathon Infante MD Electrical Mechanical Technician: Geovanni RIOS RRT Age: 45 : 1975 Sex: Female Race: Height: 59.00 Inches Weight: 278.00 Lbs BSA: 2.12 Order IDs: [id number] Requested Test(s): <RESP-PFT.PFT B/A> Diagnosis: R06.00 test meet the ATS standards for acceptability and repeatability. Pt was given four puffs of albuterol for post bronchodilator. Review Status: Not Reviewed Pre-Bronch Post-Bronch Pred Actual %Pred Actual %Chng SPIROMETRY FVC (L) 3.03 2.00 66 2.02 1 FEV1 (L) 2.45 1.76 71 1.79 1 FEV1/FVC (%) 81 88 108 88 FEF 25% (L/sec) 4.81 3.74 77 3.25 -13 FEF 50% (L/sec) 4.06 2.87 70 3.30 15 FEF 75% (L/sec) 1.55 0.97 62 1.12 14 FEF 25-75% (L/sec) 2.66 2.19 82 2.46 12 FEF Max (L/sec) 6.13 4.48 73 3.67 -17 FIVC (L) 1.84 2.00 9 FIF 50% (L/sec) 4.14 2.10 50 1.76 -15 FIF Max (L/sec) 2.31 1.82 -20 MVV (L/min) 90 52 57 Expiratory Time (sec) 7.13 6.55 -8 Back Extrap Vol (L) 0.08 0.11 31 Time To FEFmax (sec) 0.106 0.220 107 LUNG VOLUMES SVC (L) 2.86 2.38 83 IC (L) 1.95 2.02 103 ERV (L) 0.91 0.36 39 TGV (L) 2.35 1.33 56 RV (Pleth) (L) 1.44 0.98 67 TLC (Pleth) (L) 4.30 3.36 78 RV/TLC (Pleth) (%) 33 29 88 DIFFUSION DLCOunc (ml/min/mmHg) 21.23 19.36 91 DLCOcor (ml/min/mmHg) 21.23 22.07 103 DL/VA (ml/min/mmHg/L) 4.94 7.47 151 VA (L) 4.30 2.96 68 BHT (sec) 10.38 IVC (L) 1.99 TLC (SB) (L) 3.11 AIRWAYS RESISTANCE Raw (cmH2O/L/s) 1.86 2.11 113 Gaw (L/s/cmH2O) 1.03 0.48 46 sRaw (cmH2O*s) 4.76 3.30 69 sGaw (1/cmH2O*s) 0.20 0.31 152 BLOOD GASES Hgb (gm/dL) 10.0
== END ==
LOC: M CARPUL 07:37
PROVIDERS: ATTEND Internal Medicine Pulmonary Disease
DX: R06.00 Dyspnea, unspecified (principal)

== ENCOUNTER → 2021-01-22 | Outpatient (CLI) | payer MEDICARE, MEDICAID ==
--- NOTE | 2021-01-24 15:52 | SLEEPCENT ---
DATE: 01/22/2021 ORDERED BY: Claudia Mariscal MD Nocturnal polysomnography was performed for the titration of pressure therapy in this patient with obstructive sleep apnea syndrome, apnea-hypopnea index of 56. For testing the patient was fit with a ResMed F20 AirFit full face mask of medium size, 10 cm of water pressure were initially applied to the circuit, and the lights were extinguished. Eight hours and 15 minutes of data were reviewed. There were 457 minutes of sleep identified. Sleep latency was mildly prolonged at 14.5 minutes. REM latency was normal at 70 minutes. Sleep architecture was good with four REM cycles. Overall sleep efficiency was 93.6%. The electrocardiogram showed a sinus rhythm with an average heart rate of 68 beats per minute. EEG showed normal waveforms for wake and sleep. Respiratory events were best palliated with CPAP at a pressure of +12 and remaining measures of sleep physiology were normal. IMPRESSION: Obstructive sleep apnea syndrome (G47.33). RECOMMENDATION: Nightly use of pressure therapy 12 cm of water. cc: BRENDA LORENZ M.D. Jaya Mathur MD
== END ==
LOC: M SLEEP 20:00
PROVIDERS: ATTEND Internal Medicine Pulmonary Disease
DX: G47.33 Obstructive sleep apnea (adult) (pediatric) (principal)

== ENCOUNTER → 2022-05-31 | Outpatient (REF) | payer MEDICARE, MEDICAID ==
[~2022-05-31] MED LIST changes: +FLUT50SP17 INH; -FLUTISP INH; -OMEP-221 PO; +OMEP40CA5 PO
== END ==
LOC: M LAB REF 16:27
PROVIDERS: ATTEND Podiatrist
DX: L03.116 Cellulitis of left lower limb (principal)

== ENCOUNTER → 2022-11-07 | Outpatient (CLI) | payer MEDICARE, MEDICAID ==
[~2022-11-07] MED LIST changes: +BUSP15TA47; +LEXA1TAB2 PO; +LORA-1041 PO; -LORA-674 PO; +METHACHOLINE KIT INH ONE; -MIRT-62 PO; +MIRT-88 PO; +OXYB10TA23 PO
== END ==
LOC: M CARPUL 12:56
PROVIDERS: ATTEND Nurse Practitioner Adult Health
DX: R06.02 Shortness of breath (principal)
CPT/HCPCS: 94070; 95070; J7674

== ENCOUNTER 2023-04-25 07:00 | Emergency (ER) | payer MEDICARE, MEDICAID ==
[~2023-04-25] VITALS: Ht 149.9 cm; Wt 116.3 kg
[~2023-04-25 07:00] MED LIST changes: -BUSP15TA47; +BUSP15TA47 PO; -FLUT50SP17 INH; +FLUTISP INH; -METHACHOLINE KIT INH ONE
[2023-04-25 08:23] LABS: HEMATOCRIT 37.5 % (36.0-47.0); HEMOGLOBIN 12.5 g/dl (12.0-15.5); MEAN CORPUSCULAR HEMOGLOBIN 31.3 pg (27.0-33.0); MEAN CORPUSCULAR HGB CONC 33.3 g/dl (32.0-36.5); PLATELET COUNT, AUTOMATED 214 10^3/uL (150-450); RED BLOOD COUNT 3.99 10^6/uL (4.00-5.40); WHITE BLOOD COUNT 9.1 10^3/uL (4.0-10.0)
[2023-04-25] MEDS ORDERED: TOPI200T7 PO (09:17)
[2023-04-25] MEDS ORDERED: ARIP1TAB4 PO (09:17)
[2023-04-25] MEDS ORDERED: ALBU8.5H INH (09:17)
[2023-04-25] MEDS ORDERED: DOCU100C16 PO (09:17)
[2023-04-25] MEDS ORDERED: MONT10TA97 PO (09:17)
[2023-04-25] MEDS ORDERED: XIID5DRO OU (09:17)
[2023-04-25] MEDS ORDERED: POTA-298 PO (09:17)
[2023-04-25 09:18] LABS: ALBUMIN 3.3 G/DL (3.2-5.2); ALKALINE PHOSPHATASE 82 U/L (46-116); ALT/SGPT 15 U/L (7.0-40); AST/SGOT 11 U/L (<34); BILIRUBIN,DIRECT < 0.1 MG/DL (<0.4); BILIRUBIN,TOTAL 0.3 MG/DL (0.3-1.2); BLOOD UREA NITROGEN 16 MG/DL (9-23); CALCIUM LEVEL 8.6 MG/DL (8.5-10.1); CARBON DIOXIDE LEVEL 24 MMOL/L (20-31); CHLORIDE LEVEL 107 MMOL/L (98-107); CREATININE FOR GFR 0.72 MG/DL (0.55-1.30); ETHYL ALCOHOL (ETHANOL) 0.006 % (0.000-0.010); GLOMERULAR FILTRATION RATE > 60.0 (>58); GLUCOSE, FASTING 118 MG/DL (60-100); POTASSIUM SERUM 3.7 MMOL/L (3.5-5.1); SALICYLATE LEVEL < 3.0 MG/DL (<30); SODIUM LEVEL 140 MMOL/L (136-145); THYROID STIMULATING HORMONE 0.808 uIU/ML (0.55-4.78); TOTAL PROTEIN 6.3 G/DL (5.7-8.2)
[2023-04-25 11:19] LABS: AMPHETAMINES LEVEL URINE NEGATIVE (NEGATIVE)
[2023-04-25 11:20] LABS: BARBITURATES URINE NEGATIVE (NEGATIVE); BENZODIAZEPINES URINE NEGATIVE (NEGATIVE); CANNABINOIDS URINE NEGATIVE (NEGATIVE); COCAINE METABOLITE URINE NEGATIVE (NEGATIVE); METHADONE URINE NEGATIVE (NEGATIVE); OPIATES URINE NEGATIVE (NEGATIVE); PHENCYCLIDINE URINE NEGATIVE (NEGATIVE)
[2023-04-25 12:56] VITALS: BP 124/69; TEMP 96.9; O2SAT 100
== END 2023-04-25 12:58 | disposition home or self-care (01) ==
LOC: M ED 07:00
DX: F32.A Depression, unspecified (principal); I10 Essential (primary) hypertension; D50.9 Iron deficiency anemia, unspecified; K21.9 Gastro-esophageal reflux disease without esophagitis; Z88.0 Allergy status to penicillin; Z88.8 Allergy status to other drugs, medicaments and biological substances; Z91.048 Other nonmedicinal substance allergy status; Z79.51 Long term (current) use of inhaled steroids; Z79.899 Other long term (current) drug therapy

== ENCOUNTER → 2023-09-24 | Outpatient (CLI) | payer MEDICARE, MEDICAID ==
[~2023-09-24] MED LIST changes: +AIMO70IN; +ALBU2.5V10; +ALBU8.5H INH; +ARIP1TAB4 PO; +BUPR-597 PO; -BUPR300T92 PO; +DOCU100C16 PO; +MONT10TA97 PO; +POTA-298 PO; +SERO50TA PO; +TOPI200T7 PO; +XIID5DRO OU
[2023-09-24 12:41] LABS: ABG BASE EXCESS -2.4 (-2.0-2.0); ABG HCO3 21.6 MMOL/L (22.0-26.0); ABG O2 SATURATION 97.3 % (95.0-99.0); ABG PARTIAL PRESSURE CO2 35.1 mmHg (35.0-45.0); ABG PARTIAL PRESSURE O2 95.1 mmHg (75.0-100.0); ABG STANDARD HCO3 22.5 MMOL/L. (22.0-26.0); ABG TOTAL CO2 22.7 MMOL/L (22.0-29.0); ABG pH (ARTERIAL) 7.408 UNITS (7.350-7.450)
== END ==
LOC: M LAB 11:51
PROVIDERS: ATTEND Nurse Practitioner Adult Health
DX: E66.2 Morbid (severe) obesity with alveolar hypoventilation (principal)

== ENCOUNTER 2023-10-19 09:09 | Day surgery (SDC) | payer MEDICARE, MEDICAID ==
[~2023-10-19] VITALS: Ht 149.9 cm; Wt 113.4 kg
[~2023-10-19 09:09] MED LIST changes: +BUSP30TA PO; +MAGN400T2 PO; +MIRT-11 PO; +POTA-151 PO
[2023-10-19] MEDS ORDERED: propofoL 200 MG/20 ML VIAL As Ordered ONE (10:20)
[2023-10-19] MEDS ORDERED: ACETAMINOPHEN 1000MG 100ML IV BAG As Ordered ONE (10:20)
[2023-10-19] MEDS ORDERED: ONDANSETRON 4MG 2ML VIAL As Ordered ONE (10:20)
[2023-10-19] MEDS ORDERED: fentaNYL 100 MCG/2 ML INJECTION As Ordered ONE (10:21)
[2023-10-19] MEDS ORDERED: MIDAZOLAM INJ 2MG/2ML VIAL As Ordered ONE (10:21)
[2023-10-19] MEDS ORDERED: LIDOCAINE 2% 100MG/5ML SDV (FOR ANES.) As Ordered ONE (10:29)
[2023-10-19] MEDS ORDERED: ROPIvacaine 0.5% 30ML VIAL As Ordered ONE (10:54)
[2023-10-19] MEDS: BACITRACIN OINTMENT 30GM TUBE As Ordered ONE (10:54)
[2023-10-19] MEDS: ceFAZolin SOD 2 GM in IV 1 EA IV ONE (11:20)
[2023-10-19] MEDS: LIDOCAINE 2% MDV 20ML VIAL As Ordered ONE (11:20)
[2023-10-19] MEDS: GENTAMICIN SULF 80MG/2ML VIAL As Ordered ONE (11:40)
[2023-10-19] MEDS ORDERED: KETOROLAC 60MG 2ML VIAL As Ordered ONE (11:47)
[2023-10-19 12:35] VITALS: BP 121/78; TEMP 97; O2SAT 97
== END 2023-10-19 13:01 | disposition home or self-care (01) ==
LOC: M SDC 09:09
PROVIDERS: ATTEND Podiatrist
DX: M72.2 Plantar fascial fibromatosis (principal); G47.33 Obstructive sleep apnea (adult) (pediatric); E66.2 Morbid (severe) obesity with alveolar hypoventilation; E03.9 Hypothyroidism, unspecified; Z79.890 Hormone replacement therapy; Z79.899 Other long term (current) drug therapy; Z79.01 Long term (current) use of anticoagulants; Z86.711 Personal history of pulmonary embolism; Z99.81 Dependence on supplemental oxygen; K21.9 Gastro-esophageal reflux disease without esophagitis; Z68.43 Body mass index [BMI] 50.0-59.9, adult; Z88.0 Allergy status to penicillin; Z88.8 Allergy status to other drugs, medicaments and biological substances; Z91.048 Other nonmedicinal substance allergy status

== ENCOUNTER 2024-02-08 07:12 | Day surgery (SDC) | payer MEDICARE, MEDICAID ==
[~2024-02-08] VITALS: Ht 149.9 cm; Wt 117.1 kg
[~2024-02-08 07:12] MED LIST changes: +CLON1TAB8 PO; +MEDR10TA9 PO; +SPIR50TA4 PO
[2024-02-08] MEDS ORDERED: propofoL 200 MG/20 ML VIAL As Ordered ONE (08:04)
[2024-02-08] MEDS ORDERED: fentaNYL 100 MCG/2 ML INJECTION As Ordered ONE (08:04)
[2024-02-08] MEDS ORDERED: MIDAZOLAM INJ 2MG/2ML VIAL As Ordered ONE (08:04)
[2024-02-08] MEDS ORDERED: LIDOCAINE 2% 100MG/5ML SDV (FOR ANES.) As Ordered ONE (08:04)
[2024-02-08] MEDS: NS (Normal Saline) 0.9% 1,000 ML IV SCH (08:43)
[2024-02-08] MEDS: ceFAZolin SOD 2 GM in IV 1 EA IV ONE (09:19)
[2024-02-08] MEDS: LIDOCAINE 2% MDV 20ML VIAL As Ordered ONE (09:26)
[2024-02-08] MEDS ORDERED: ACETAMINOPHEN 1000MG/100ML IV BAG As Ordered ONE (09:40)
[2024-02-08] MEDS: GENTAMICIN SULF 80MG/2ML VIAL As Ordered ONE (09:49)
[2024-02-08 10:23] VITALS: BP 112/55; TEMP 97.5; O2SAT 99
== END 2024-02-08 11:17 | disposition home or self-care (01) ==
LOC: M SDC 07:12
PROVIDERS: ATTEND Podiatrist
DX: M72.2 Plantar fascial fibromatosis (principal); G47.30 Sleep apnea, unspecified; Z88.8 Allergy status to other drugs, medicaments and biological substances; Z88.0 Allergy status to penicillin; Z91.048 Other nonmedicinal substance allergy status
CPT/HCPCS: 29893; 76000; 81025; J0131; J0665; J0690; J1100; J1580; J2250; J3010

== ENCOUNTER → 2024-09-02 | Outpatient (REF) | payer MEDICARE, MEDICAID ==
[~2024-09-02] MED LIST changes: -BUPR-597 PO; +BUPR-766 PO; +LIFI1DRO4 OU; +TOPI-14 PO; +TOPI-257 PO; -TOPI100T9 PO; -TOPI200T7 PO; -XIID5DRO OU
== END ==
LOC: M SFHCADAM 13:26
PROVIDERS: ATTEND Physician Assistant
DX: Z53.9 Procedure and treatment not carried out, unspecified reason (principal)